=== PATIENT | male | born 1995 | race Caucasian/White ===

== ENCOUNTER 2018-08-29 22:45 | Emergency (ER) | payer OTHER ==
[~2018-08-29] VITALS: Ht 172.7 cm; Wt 59.0 kg
--- NOTE | 2018-08-29 23:27 | NUR ---
Dr. Orourke at bedside for MSE.
--- NOTE | 2018-08-29 23:40 | NUR ---
Pt out of ER for CT.
--- NOTE | 2018-08-29 23:50 | NUR ---
Pt back to ER from CT.
[2018-08-30 00:10] LABS: BASOPHILS % (AUTO) 0.5 % (0.0-2.0); EOSINOPHILS # (AUTO) 0.2 K/uL (0.0-0.7); EOSINOPHILS % (AUTO) 1.6 % (0.0-7.0); HEMATOCRIT 46.6 % (36.7-47.1); HEMOGLOBIN 15.9 g/dL (12.5-16.3); LYMPHOCYTES # (AUTO) 3.6 K/uL (20.0-40.0); LYMPHOCYTES % (AUTO) 39.2 % (20.5-51.5); MEAN CORPUSCULAR HEMOGLOBIN 30.1 uug (23.8-33.4); MEAN CORPUSCULAR HGB CONC 34 g/dL (32.5-36.3); MEAN CORPUSCULAR VOLUME 88.1 fL (73.0-96.2); MONOCYTES # (AUTO) 0.8 K/uL (2.0-10.0); MONOCYTES % (AUTO) 8.4 % (0.0-11.0); NEUTROPHILS # (AUTO) 4.6 K/uL (1.8-8.9); NEUTROPHILS % (AUTO) 50.3 % (38.5-71.5); PLATELET COUNT (AUTO) 236 K/uL (152-348); RED BLOOD CELL COUNT(AUTO) 5.29 MIL/uL (4.06-5.63); WHITE BLOOD COUNT (AUTO) 9.2 K/uL (3.6-10.2)
[2018-08-30 00:14] LABS: POTASSIUM 3.8 mmol/L (3.5-5.1)
[2018-08-30 00:19] LABS: BILIRUBIN,TOTAL 0.8 mg/dL (0.2-1.0); TOTAL PROTEIN, SERUM 8.1 g/dL (6.4-8.2)
--- NOTE | 2018-08-30 00:51 | NUR ---
Patient discharged to home in stable conditon. Written and verbal after care instructions given. Patient verbalizes understanding of instructions. Pt. d/c per MD order, d/c papers signed, all belongings w/ pt., ID band removed, ambulated off unit w/ steady gait accompanied by female template cutter, GWEN
== END 2018-08-30 00:54 | disposition home or self-care (01) ==
LOC: ER 22:46
DX: G93.0 Cerebral cysts (principal); G89.29 Other chronic pain; R51 Headache
CPT/HCPCS: 36415; 70450; 85025; A4663